=== PATIENT | female | born 1970 | race Caucasian/White ===

== ENCOUNTER → 2017-01-24 | Outpatient (CLI) | payer BC ==
[~2017-01-24] MED LIST: IBUP200C62 PO; LOSA50TA52 PO
--- NOTE | 2017-01-24 16:05 | DI ---
Indication: ITS.REASON: M54.31 SCIATICA, RIGHT SIDE PROCEDURE: LUMBAR SPINE COMP W/O BEND: Encounter: Initial Comparison: None Findings: Five views of lumbosacral spine including oblique views demonstrates mild degenerative changes, age compatible. There is no subluxation or acute fracture. Mild facet degenerative changes at L4-5 and L5-S1. No pars defects identified. Impression: Age-related degenerative changes of the lumbosacral spine. .
== END ==
LOC: IMA 15:00
PROVIDERS: ATTEND Family Medicine
DX: M54.31 Sciatica, right side (principal); M51.37 Other intervertebral disc degeneration, lumbosacral region

== ENCOUNTER → 2017-03-18 | Outpatient (CLI) | payer BC | LOC: WC.BC 15:48 | DX: Z12.31 Encounter for screening mammogram for malignant neoplasm of breast (principal) | CPT/HCPCS: 77063; G0202 ==